=== PATIENT | male | born 1980 | race African-American/Black ===

== ENCOUNTER 2017-01-13 10:35 | Emergency (ER) | payer OTHER ==
[~2017-01-13] VITALS: Ht 190.5 cm; Wt 68.0 kg
--- NOTE | ~2017-01-13 | EKG ---
[place] [address] [facility] [employer] [address] ELECTROCARDIOGRAM REPORT Name: MIRELLA OLSON Room #: DEP LUCY Moralez#: [id number] Admission: 01/13/17 Attend Phys: Discharge: 01/13/17 Date of : 78 Report #: [id number] THIS REPORT FOR: //name// [facility] ED Test Date: 2017-01-13 Test Time: 10:49:10 Pat Name: MIRELLA OLSON Department: Room: 170 Gender: M Wireline Operator: YOEL : 1980 Requested By: Abdi Klein Order Number: [id number] MD: Minor Solis Measurements Intervals [place]out Rate: 107 P: 78 VA: 159 QRS: 85 QRSD: 90 T: 85 QT: 323 QTc: 431 Interpretive Statements Sinus tachycardia Consider right atrial enlargement ST elev, probable normal early repol pattern No previous ECG available for comparison Electronically Signed On 01-14-2017 6:49:32 CDT by Minor Solis [email or web address] <ELECTRONICALLY SIGNED> By: Minor Solis MD 01/14/17 0649 [id number] [id number] Minor Solis MD /[email or web address]
[2017-01-13 10:37] VITALS: BP 151/99
[2017-01-13 11:08] LABS: HEMATOCRIT 47.4 % (42.0-52.0); HEMOGLOBIN 16.2 gm/dL (14.0-18.0); MCH 29.6 pg (26.0-34.0); MCHC 34.3 g/dL (28.0-37.0); MCV 86.2 fL (80.0-100.0); RBC 5.5 mil/uL (4.50-6.00); RDW 13.9 % (10.5-14.5); WBC 7.9 thou/uL (4.0-11.0)
[2017-01-13 11:19] LABS: ANION GAP 13 mmol/L (7-16); BUN 7 mg/dL (7-18); CALCIUM 10.2 mg/dL (8.5-10.1); CHLORIDE 101 mmol/L (98-107); CO2 23 mmol/L (21-32); CREATININE 0.9 mg/dL (0.7-1.3); GLUCOSE 162 mg/dL (74-106); SODIUM 137 mmol/L (136-145)
[2017-01-13 11:27] LABS: TROPONIN-I < 0.04 ng/mL (<0.06)
[2017-01-13 12:32] VITALS: BP 159/105
== END 2017-01-13 12:34 | disposition left against medical advice (07) ==
LOC: ER 10:35 → EROBS 11:53 → ER 11:53
PROVIDERS: Emergency Medicine
DX: R07.9 Chest pain, unspecified (principal); F17.210 Nicotine dependence, cigarettes, uncomplicated; F10.99 Alcohol use, unspecified with unspecified alcohol-induced disorder; Z88.8 Allergy status to other drugs, medicaments and biological substances